=== PATIENT | female | born 1945 | race Caucasian/White ===

== ENCOUNTER → 2020-11-05 | Outpatient (CLI) | payer MEDICARE ==
[~2020-11-05] MED LIST: DILT120T3 PO; DILT5VIA PO; FURO40TA6 PO; GABA300C10 PO; GUAI400T81 PO; INSU100I13 SQ; INSU200I SQ; LEVO125T5 PO; LEVO25TA4 PO; LIRA0.6P SQ; LOSA25TA25 PO; OMEP10CA5 PO; PRAV10TA2 PO; PRAV40TA2 PO; SILD20TA PO; SPIR10PO PO; SPIR50TA4 PO; TIZA2CAP PO
== END | disposition home or self-care (01) ==
LOC: CVU 12:15
PROVIDERS: ATTEND Internal Medicine Cardiovascular Disease
DX: I65.23 Occlusion and stenosis of bilateral carotid arteries (principal); I25.10 Atherosclerotic heart disease of native coronary artery without angina pectoris; E78.5 Hyperlipidemia, unspecified; E11.22 Type 2 diabetes mellitus with diabetic chronic kidney disease; N18.9 Chronic kidney disease, unspecified
CPT/HCPCS: 93880